=== PATIENT | female | born 1935 | race Caucasian/White ===

== ENCOUNTER 2020-08-22 16:13 | Emergency (ER) | payer OTHER ==
[~2020-08-22] VITALS: Ht 142.2 cm; Wt 72.6 kg
[~2020-08-22 16:13] MED LIST: SYNTHROID50 MCG; ULTRACET PO; VASOTEC5 MG
[2020-08-22] MEDS ORDERED: JANUVIA25 MG (16:37)
[2020-08-22] MEDS ORDERED: NASAL MIST126 ML (16:37)
== END 2020-08-22 17:48 | disposition home or self-care (01) ==
LOC: ER 16:13
DX: H66.92 Otitis media, unspecified, left ear (principal)

== ENCOUNTER 2021-01-12 07:37 | Outpatient (CLI) | payer OTHER ==
[~2021-01-12 07:37] MED LIST changes: +JANUVIA25 MG; +NASAL MIST126 ML
== END 2021-01-12 07:48 | disposition home or self-care (01) ==
LOC: RAD 07:37 → RX STUDY 08:15
PROVIDERS: ATTEND Internal Medicine Gastroenterology
DX: N20.0 Calculus of kidney (principal); R10.13 Epigastric pain; K76.0 Fatty (change of) liver, not elsewhere classified; K80.80 Other cholelithiasis without obstruction

== ENCOUNTER 2021-01-28 14:22 | Outpatient (CLI) | payer OTHER | END 2021-01-28 17:22 | disposition home or self-care (01) | LOC: OFIC 805 14:22 | PROVIDERS: ATTEND Otolaryngology Otology & Neurotology | DX: H91.13 Presbycusis, bilateral (principal); D11.0 Benign neoplasm of parotid gland ==

== ENCOUNTER 2021-08-27 10:12 | Outpatient (CLI) | payer OTHER | END 2021-08-27 10:15 | disposition home or self-care (01) | LOC: SONOGRAMA 10:12 | PROVIDERS: ATTEND Pathology Anatomic Pathology & Clinical Pathology | DX: E07.89 Other specified disorders of thyroid (principal) ==

== ENCOUNTER 2021-09-15 16:43 | Inpatient (IN) | payer OTHER ==
[~2021-09-15] VITALS: Ht 152.4 cm; Wt 71.2 kg
[2021-09-15] MEDS ORDERED: BONIVA150 MG PO (16:56)
[2021-09-15] MEDS ORDERED: METFORMIN HCL500 M3 PO (16:56)
[2021-09-15] MEDS ORDERED: PLAVIX75 MG PO (16:56)
[2021-09-15] MEDS ORDERED: ZOLOFT100 MG PO (16:57)
[2021-09-21] MEDS ORDERED: CEFDINIR300 MG PO (09:29)
== END 2021-09-21 16:44 | disposition home health service (06) | DRG 812 ==
LOC: ER 16:43 → MEDJ 23:26
PROVIDERS: ADMIT Internal Medicine; ATTEND Internal Medicine
PROC: 30233N1 Transfusion of Nonautologous Red Blood Cells into Peripheral Vein, Percutaneous Approach (ICD-10-PCS; principal; 2021-09-16)
PROC: 02HV33Z Insertion of Infusion Device into Superior Vena Cava, Percutaneous Approach (ICD-10-PCS; 2021-09-16)
DX: D50.0 Iron deficiency anemia secondary to blood loss (chronic) (principal); N39.0 Urinary tract infection, site not specified; N17.8 Other acute kidney failure; B96.20 Unspecified Escherichia coli [E. coli] as the cause of diseases classified elsewhere; Z20.822 Contact with and (suspected) exposure to COVID-19

== ENCOUNTER 2021-11-04 07:33 | Outpatient (CLI) | payer OTHER ==
[~2021-11-04 07:33] MED LIST changes: +BONIVA150 MG PO; +CEFDINIR300 MG PO; +METFORMIN HCL500 M3 PO; +PLAVIX75 MG PO; +ZOLOFT100 MG PO
== END 2021-11-04 08:22 | disposition home or self-care (01) ==
LOC: RX STUDY 07:33
PROVIDERS: ATTEND Internal Medicine Gastroenterology
DX: R13.12 Dysphagia, oropharyngeal phase (principal)

== ENCOUNTER 2022-01-04 09:32 | Inpatient (IN) | payer OTHER ==
[~2022-01-04] VITALS: Ht 152.4 cm; Wt 59.9 kg
--- NOTE | 2022-01-04 10:08 | NUR ---
PACIENTE ALERTA Y ORIENTADA ACOMPNADA DE RODRIGUEZ YERNA, LA MISMA REFIERE QUE DESDE EDSTA MANANA PRRESENTA ADORMECIMIENTO DEL BRAZO ROJELIO, PACIENTE REFIERE QUE EN EL MOMENTO NO PRESNETA DOLOR DE PECHO JENARO QUE JOSE DANIEL POR LA NOCHE SI LO PRESENTO EL DOLOR. SE LE REALIZA EKG Y SE PRESENTA A DR DE TURNO. SE MONITOREAN S/V Y SE UBICA EN CHEST PAIN CDAMA 17.
--- NOTE | 2022-01-04 15:22 | NUR ---
SE RECIBE PACIENTE DE TURNO ANTERIOR ALERTA Y ORIENTADA X3 ACOMPANADA DE RODRIGUEZ FAMILIAR. PTE EN DAVID #17 CON BARANDAS ELEVADAS POR SEGURIDAD.PTE CON VENOPUNCION PATENTE Y MARISOL DE EDEMA BAJANDO 0.9NSS @100ML/HR. TIENE PENDIENTE U/A Y LA CONSULTA YA NOTIFICADA A DR.RIVERA HUMMEL.
[2022-01-05] MEDS ORDERED: FAMOTIDINE40 MG (08:21)
[2022-01-05] MEDS ORDERED: ATORVASTATIN CA10 MG (08:21)
[2022-01-05] MEDS ORDERED: IRON325 MG (08:21)
[2022-01-05] MEDS ORDERED: VITAMIN D3125 MC1 (08:21)
[2022-01-05] MEDS ORDERED: PANTOPRAZOLE SO40 MG (08:22)
[2022-01-05] MEDS ORDERED: SUCRALFATE1 GM (08:22)
[2022-01-07] MEDS ORDERED: SERTRALINE HCL100 MG PO (15:14)
[2022-01-07] MEDS ORDERED: INTEGRA PLUS C1 EACH PO (15:14)
[2022-01-07] MEDS ORDERED: PLAVIX75 MG PO (15:14)
[2022-01-07] MEDS ORDERED: ENALAPRIL MALEAT5 MG PO (15:14)
[2022-01-07] MEDS ORDERED: LEVOTHYROXINE50 MCG PO (15:14)
[2022-01-07] MEDS ORDERED: PEPCID AC20 MG PO (15:14)
[2022-01-07] MEDS ORDERED: Neurin-Sl Tablet Sl SL (15:14)
[2022-01-07] MEDS ORDERED: B Complex CAPSULE PO (15:14)
[2022-01-07] MEDS ORDERED: Lipitor 10MG TABLET PO (15:14)
== END 2022-01-07 15:28 | disposition home or self-care (01) | DRG 69 ==
LOC: ER 09:32 → MEDI 23:11
PROVIDERS: ADMIT Internal Medicine; ATTEND Internal Medicine
PROC: BW28ZZZ Computerized Tomography (CT Scan) of Head (ICD-10-PCS; 2022-01-04)
PROC: 4A12X4Z Monitoring of Cardiac Electrical Activity, External Approach (ICD-10-PCS; principal; 2022-01-05)
PROC: B24BZZZ Ultrasonography of Heart with Aorta (ICD-10-PCS; 2022-01-05)
DX: G45.8 Other transient cerebral ischemic attacks and related syndromes (principal); I11.9 Hypertensive heart disease without heart failure; E11.69 Type 2 diabetes mellitus with other specified complication; Z79.4 Long term (current) use of insulin; E03.8 Other specified hypothyroidism; E78.49 Other hyperlipidemia; K21.9 Gastro-esophageal reflux disease without esophagitis; D50.0 Iron deficiency anemia secondary to blood loss (chronic); Z85.3 Personal history of malignant neoplasm of breast; Z20.822 Contact with and (suspected) exposure to COVID-19; Z91.81 History of falling
CPT/HCPCS: 70544

== ENCOUNTER 2022-01-12 07:07 | Outpatient (CLI) | payer OTHER ==
[~2022-01-12 07:07] MED LIST changes: +ATORVASTATIN CA10 MG; +B Complex CAPSULE PO; +ENALAPRIL MALEAT5 MG PO; +FAMOTIDINE40 MG; +INTEGRA PLUS C1 EACH PO; +IRON325 MG; +LEVOTHYROXINE50 MCG PO; +Lipitor 10MG TABLET PO; +Neurin-Sl Tablet Sl SL; +PANTOPRAZOLE SO40 MG; +PEPCID AC20 MG PO; +SERTRALINE HCL100 MG PO; +SUCRALFATE1 GM; +VITAMIN D3125 MC1
== END 2022-01-12 07:18 | disposition home or self-care (01) ==
LOC: TOM 07:07
PROVIDERS: ATTEND Internal Medicine Gastroenterology
DX: R19.5 Other fecal abnormalities (principal); D50.9 Iron deficiency anemia, unspecified; K56.601 Complete intestinal obstruction, unspecified as to cause

== ENCOUNTER 2022-08-04 18:02 | Emergency (ER) | payer OTHER ==
[~2022-08-04] VITALS: Ht 149.9 cm; Wt 68.0 kg
[2022-08-04] MEDS ORDERED: RISPERIDONE0.25 MG PO (18:15)
[2022-08-04] MEDS ORDERED: IBANDRONATE SO150 MG PO (18:16)
[2022-08-04] MEDS ORDERED: ARTHRITIS PAIN650 MG PO (18:16)
[2022-08-04] MEDS ORDERED: JANUVIA50 MG PO (18:17)
== END 2022-08-04 21:14 | disposition home or self-care (01) ==
LOC: ER 18:02
DX: S09.90XA Unspecified injury of head, initial encounter (principal); W18.30XA Fall on same level, unspecified, initial encounter; Y93.F1 Activity, caregiving, bathing; Y92.012 Bathroom of single-family (private) house as the place of occurrence of the external cause; I10 Essential (primary) hypertension; E11.9 Type 2 diabetes mellitus without complications; E78.00 Pure hypercholesterolemia, unspecified; Z91.012 Allergy to eggs; Z88.0 Allergy status to penicillin